=== PATIENT | female | born 1990 ===

== ENCOUNTER 2024-04-26 06:24 | Inpatient (IN) | payer OTHER ==
[2024-04-26] MEDS: OXYTOCIN 20 UNITS in 0.9% NS 20 UNIT/1,000 ML INFUS.BAG IV SCH (06:45)
[2024-04-26] MEDS ORDERED: BISACODYL 10 MG SUPP.RECT RC PRN (07:27)
[2024-04-26] MEDS ORDERED: BENZOCAINE 28 GM HEMORRHOIDAL OINTMENT TP PRN (07:27)
[2024-04-26] MEDS ORDERED: METHYLERGONOVINE MALEATE 0.2 MG/1 ML AMP IM PRN (07:27)
[2024-04-26] MEDS ORDERED: WITCH HAZEL 50% (TUCKS) 40 PAD/JAR PAD TP PRN (07:27)
[2024-04-26] MEDS: oxyCODONE HCL 5 MG TABLET PO PRN (07:40)
[2024-04-26 08:17] VITALS: BMI 26.0
[2024-04-26 08:43] LABS: INR 0.96 (0.83-1.09); PROTHROMBIN TIME (PATIENT) 10.9 SEC (9.7-13.0)
[2024-04-26 08:45] LABS: ACTIVATED PTT 26.6 SECONDS (25.2-36.5)
[2024-04-26 08:59] LABS: HEMATOCRIT 36.3 % (32.4-45.2); HEMOGLOBIN 11.8 GM/dL (10.7-15.3); MCH 27.3 pg (25.7-33.7); MCHC 32.4 g/dl (32.0-36.0); MEAN CELL VOLUME 84.1 fl (80-96); MEAN PLT VOLUME 9.3 fl (7.5-11.1); PLATELET COUNT 221 10^3/uL (134-434); RBC 4.31 M/mm3 (3.60-5.2); RDW 13.6 % (11.6-15.6); WHITE BLOOD COUNT 6.7 K/mm3 (4.0-10.0)
[2024-04-26 09:36] LABS: ANISOCYTOSIS 0; MACROCYTOSIS 0
[2024-04-26 10:10] LABS: POTASSIUM 3.8 mmol/L (3.5-5.1)
[2024-04-26 10:12] LABS: CALCIUM 8.6 mg/dL (8.5-10.1)
[2024-04-26 10:13] LABS: ALBUMIN 2.6 g/dl (3.4-5.0); BLOOD UREA NITROGEN 6.1 mg/dL (7-18)
[2024-04-26 10:16] LABS: CREATININE 0.7 mg/dL (0.55-1.3)
[2024-04-26 10:18] LABS: BILIRUBIN,TOTAL 0.2 mg/dL (0.2-1)
[2024-04-26 12:19] LABS: HIV INTERPRETATION NEGATIVE (NEGATIVE)
[2024-04-26 13:26] LABS: HEPATITIS B SURFACE AG MATERN NON-REACTIVE (NONREACTIVE)
[2024-04-26 13:27] LABS: SYPHILIS W/ RPR CONF NON-REACTIVE (NONREACTIVE)
[2024-04-26 14:49] LABS: COCAINE, UR NEGATIVE (NEGATIVE); URINE BENZODIAZEPINES NEGATIVE (NEGATIVE)
[2024-04-26 14:50] LABS: METHADONE, UR NEGATIVE (NEGATIVE); OPIATES, URI NEGATIVE (NEGATIVE); PHENCYCLIDINE,URINE NEGATIVE (NEGATIVE)
[2024-04-26 15:01] LABS: PH,URINE 7.5 (5.0-8.0); URINE APPEARANCE CLEAR; URINE BILIRUBIN NEGATIVE (NEGATIVE); URINE COLOR YELLOW; URINE GLUCOSE (UA) NEGATIVE (NEGATIVE); URINE KETONE NEGATIVE (NEGATIVE); URINE PROTEIN NEGATIVE (NEGATIVE); URINE UROBILINOGEN 0.2 mg/dL (0.2-1.0)
[2024-04-26 15:01] LABS: URINE AMPHETAMINES NEGATIVE (NEGATIVE); URINE BARBITURATES NEGATIVE (NEGATIVE)
[2024-04-26 15:02] LABS: URINE LEUK ESTERASE TRACE (NEGATIVE); URINE NITRITE NEGATIVE (NEGATIVE)
[2024-04-26 15:04] LABS: EPI CELLS 5 /uL (0-25.1); HYALINE CASTS 0 /uL (0-3.1); URINE BACTERIA 9 /uL (0-1359); URINE RBC 1058 /uL (0-23.9); URINE WBC 22 /uL (0-25.8)
[2024-04-26] MEDS: BENZOCAINE 20% 57 GM BOTTLE TP PRN (15:30)
[2024-04-26] MEDS: IBUPROFEN 600 MG TABLET (FP) PO PRN (15:30)
[2024-04-27] MEDS: ACETAMINOPHEN 325 MG TABLET (FP) PO PRN (07:53)
[2024-04-27 08:38] LABS: BASO % 0.4 % (0-2.0); EOS % 1.5 % (0-4.5); HEMATOCRIT 32.3 % (32.4-45.2); HEMOGLOBIN 10.7 GM/dL (10.7-15.3); LYMPH % 13.3 % (8-40); MCH 27.8 pg (25.7-33.7); MCHC 33.3 g/dl (32.0-36.0); MEAN CELL VOLUME 83.6 fl (80-96); MEAN PLT VOLUME 8.2 fl (7.5-11.1); MONO % 6.4 % (3.8-10.2); NEUT % 78.4 % (42.8-82.8); PLATELET COUNT 212 10^3/uL (134-434); RBC 3.86 M/mm3 (3.60-5.2); RDW 13.6 % (11.6-15.6); WHITE BLOOD COUNT 8.6 K/mm3 (4.0-10.0)
[2024-04-27] MEDS ORDERED: SENNOSIDES/DOCUSATE COMBO (SENNA PLUS) TABLET (UD) PO PRN (22:00)
[2024-04-28 00:12] VITALS: PULSE 88
[2024-04-28 10:10] VITALS: BP 106/63; RESP 18; TEMP 98.4
== END 2024-04-28 13:05 | disposition home or self-care (01) | DRG 560 ==
LOC: JLDR 06:24 → J3W 09:55
PROVIDERS: ADMIT Obstetrics & Gynecology; ATTEND Obstetrics & Gynecology
PROC: 10E0XZZ Delivery of Products of Conception, External Approach (ICD-10-PCS; principal; 2024-04-26)
DX: O80 Encounter for full-term uncomplicated delivery (principal); Z3A.35 35 weeks gestation of pregnancy; Z37.0 Single live birth
CPT/HCPCS: 36415; 59409; 80053; 80307; 81003; 85025; 85610; 85730; 86780; 86850; 86900; 86901; 87340; 87389; 88307-TC